=== PATIENT | female | born 1990 | race Caucasian/White ===

== ENCOUNTER 2018-02-19 17:04 | Observation (INO) | payer OTHER ==
[~2018-02-19] VITALS: Ht 160 cm; Wt 61.0 kg
[2018-02-19 17:23] VITALS: BP 119/79
[2018-02-19] MEDS ORDERED: PREN1TAB78 PO (18:17)
[2018-02-19] MEDS ORDERED: ACETAMINOPHEN 500MG TABLET PO NR (18:45)
== END 2018-02-19 19:28 | disposition home or self-care (01) ==
LOC: ER 17:04 → UNDOADMOB 17:41 → 8 EST LDRP 17:41 → UNDODISOB 19:28
PROVIDERS: ADMIT Specialist; ATTEND Specialist
DX: O26.892 Other specified pregnancy related conditions, second trimester (principal); R51 Headache; R11.0 Nausea; Z3A.25 25 weeks gestation of pregnancy
CPT/HCPCS: 99281; G0378